=== PATIENT | female | born 1990 | race Caucasian/White ===

== ENCOUNTER 2018-04-22 10:19 | Emergency (ER) | payer SELFPAY ==
[~2018-04-22] VITALS: Ht 153 cm; Wt 66.4 kg
[2018-04-22 10:24] VITALS: BP 123/62; PULSE 81; TEMP 98.6
[2018-04-22 12:26] LABS: COLLECTION METHOD CLEAN CATCH
[2018-04-22] MEDS ORDERED: NORCO 325 MG-51 TAB PO (12:26)
[2018-04-22 12:46] LABS: MUCOUS Present /lpf; PH 5 (5-8); SQUAMOUS EPITHELIAL 0-2 /hpf; URINE APPEARANCE Clear; URINE BACTERIA None Seen /hpf; URINE BILIRUBIN Negative (NEGATIVE); URINE BLOOD 2+ (NEGATIVE); URINE COLOR Yellow; URINE GLUCOSE Negative (NEGATIVE); URINE KETONE Trace (NEGATIVE); URINE LEUKOCYTE ESTERASE Negative (NEGATIVE); URINE NITRATE Negative (NEGATIVE); URINE PROTEIN(semi-quant) Negative (NEGATIVE); URINE UROBILINOGEN Negative (NEGATIVE)
== END 2018-04-22 12:34 | disposition home or self-care (01) ==
LOC: COL.ER 10:19
PROVIDERS: Physician Assistant
DX: M54.5 Low back pain (principal)
CPT/HCPCS: J1885; J2360

== ENCOUNTER 2018-04-26 09:57 | Emergency (ER) | payer SELFPAY ==
[~2018-04-26] VITALS: Ht 147.3 cm; Wt 77.3 kg
[~2018-04-26 09:57] MED LIST: NORCO 325 MG-51 TAB PO
[2018-04-26 10:05] VITALS: BP 113/67; TEMP 98.1
[2018-04-26 10:20] LABS: COLLECTION METHOD CLEAN CATCH
[2018-04-26 10:31] LABS: MUCOUS Present /lpf; PH 5 (5-8); URINE APPEARANCE Hazy; URINE BACTERIA Many /hpf; URINE BILIRUBIN Negative (NEGATIVE); URINE BLOOD Negative (NEGATIVE); URINE COLOR Yellow; URINE GLUCOSE Negative (NEGATIVE); URINE KETONE Negative (NEGATIVE); URINE LEUKOCYTE ESTERASE Trace (NEGATIVE); URINE NITRATE Positive (NEGATIVE); URINE PROTEIN(semi-quant) Negative (NEGATIVE); URINE UROBILINOGEN Negative (NEGATIVE)
[2018-04-26] MEDS ORDERED: NORCO 325 MG-51 TAB PO (11:08)
[2018-04-26] MEDS ORDERED: CEPHALEXIN500 M1 PO (11:08)
[2018-04-26 11:32] VITALS: PULSE 70
== END 2018-04-26 11:33 | disposition home or self-care (01) ==
LOC: COL.ER 09:57
PROVIDERS: Physician Assistant
DX: N39.0 Urinary tract infection, site not specified (principal)